=== PATIENT | male | born 1950 | race African-American/Black ===

== ENCOUNTER 2021-03-15 09:50 | Emergency (ER) | payer MEDICARE, MEDICAID ==
[~2021-03-15] VITALS: Ht 188 cm; Wt 109.6 kg
[2021-03-15 09:54] VITALS: BP 137/89
[2021-03-15] MEDS ORDERED: NEOSPORIN OINT. PKT 1 PACKET ONE (10:59)
== END 2021-03-15 11:30 | disposition home or self-care (01) ==
LOC: ED 11:20
DX: S41.012D Laceration without foreign body of left shoulder, subsequent encounter (principal); X58.XXXD Exposure to other specified factors, subsequent encounter
CPT/HCPCS: 99281